=== PATIENT | female | born 2000 | race Caucasian/White ===

== ENCOUNTER 2021-12-28 16:47 | Emergency (ER) | payer BC ==
[2021-12-28 16:59] VITALS: BP 124/82; PULSE 72; TEMP 98.2; BMI 32.3
[2021-12-28] MEDS ORDERED: ACETAMINOPHEN 325 MG TABLET (FP) PO ONE (18:09)
[2021-12-28] MEDS ORDERED: ACETAMINOPHEN 325 MG TABLET (FP) ONE (18:18)
[2021-12-28] MEDS ORDERED: SODIUM CHLORIDE 1,000 ML IV STA (18:57)
[2021-12-28 20:11] LABS: BASO % 0.4 % (0-2.0); EOS % 0.9 % (0-4.5); HEMATOCRIT 43.3 % (32.4-45.2); HEMOGLOBIN 14.4 GM/dL (10.7-15.3); LYMPH % 27.5 % (8-40); MCH 28.2 pg (25.7-33.7); MCHC 33.3 g/dl (32.0-36.0); MEAN CELL VOLUME 84.7 fl (80-96); MEAN PLT VOLUME 7.2 fl (7.5-11.1); MONO % 5.5 % (3.8-10.2); NEUT % 65.7 % (42.8-82.8); PLATELET COUNT 434 10^3/uL (134-434); RBC 5.11 M/mm3 (3.60-5.2); RDW 13.9 % (11.6-15.6); WHITE BLOOD COUNT 10.2 K/mm3 (4.0-10.0)
[2021-12-28 20:31] LABS: ALBUMIN 4.3 g/dl (3.4-5.0); BLOOD UREA NITROGEN 5.3 mg/dL (7-18); CALCIUM 9.3 mg/dL (8.5-10.1); MAGNESIUM 2.5 mg/dL (1.8-2.4)
[2021-12-28 20:34] LABS: CREATININE 0.8 mg/dL (0.55-1.3)
[2021-12-28 20:36] LABS: BILIRUBIN,TOTAL 0.2 mg/dL (0.2-1); TOT PROT 7.9 g/dl (6.4-8.2)
[2021-12-28 20:45] LABS: PHENCYCLIDINE,URINE NEGATIVE (NEGATIVE)
[2021-12-28 20:46] LABS: METHADONE, UR NEGATIVE (NEGATIVE); OPIATES, URI NEGATIVE (NEGATIVE); URINE AMPHETAMINES NEGATIVE (NEGATIVE); URINE BARBITURATES NEGATIVE (NEGATIVE); URINE BENZODIAZEPINES NEGATIVE (NEGATIVE)
[2021-12-28 20:56] LABS: COCAINE, UR NEGATIVE (NEGATIVE)
== END 2021-12-28 22:58 | disposition home or self-care (01) ==
LOC: JER 16:47
PROC: 3E0337Z Introduction of Electrolytic and Water Balance Substance into Peripheral Vein, Percutaneous Approach (ICD-10-PCS; principal; 2021-12-28)
DX: R53.1 Weakness (principal); R42 Dizziness and giddiness; E86.0 Dehydration
CPT/HCPCS: 36415; 80053; 80307; 82962; 83735; 84703; 85025; 99284-25